=== PATIENT | female | born 1990 | race Hispanic/Latino ===

== ENCOUNTER 2021-03-12 01:43 | Emergency (ER) | payer SELFPAY ==
[2021-03-12 01:46] VITALS: BP 120/77; PULSE 68; RESP 18; TEMP 36.6; O2SAT 100; BMI 28.3
--- NOTE | 2021-03-12 01:54 | EKG12_ITS ---
Test Reason : DYSRHTYHMIA Blood Pressure : / mmHG Vent. Rate : 069 BPM Atrial Rate : 069 BPM P-R Int : 158 ms QRS Dur : 084 ms QT Int : 372 ms P-R-T Axes : 053 058 039 degrees QTc Int : 398 ms Normal sinus rhythm Normal ECG Confirmed by PETE QUIJANO, SKYLA ([id number]), video effects editor NICOLE ZENG ([id number]) on 03/13/2021 10:14:20 A M Referred By: PL Confirmed By:J CARLOS FREEMAN MD
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
[2021-03-12 02:09] LABS: Absolute Neutrophil Count 4.5 X10^3/uL (2.0-7.7); Basophil# 0.01 X10^3/uL; Basophil% 0.2 % (0-1); Eosinophil# 0.09 X10^3/uL; Eosinophils% 1.4 % (0-5); Hematocrit 41.1 % (37-47); Lymphocyte % 22.7 % (19-41); Mean Corp Hgb Conc 31.6 g/dL (32-36); Mean Corpuscular Hgb 30.5 pg (27.0-32.0); Mean Corpuscular Volume 96.5 fL (81-99); Mean Platelet Vol. 9.9 fl (6.2-12.0); Monocyte# 0.45 X10^3/uL; Monocyte% 6.8 % (0-10); NRBC Flagged by Analyzer 0 % (0-5); Neutrophil # 4.51 X10^3/uL (2.7-7.7); Neutrophil % 68.1 % (47-70); Platelet Count 273 K/mm3 (150-450); RBC Distribution Width CV 12.7 % (11.6-14.6); RBC Distribution Width SD 45.1 fl (35.1-43.9); Red Blood Count 4.26 M/mm3 (4.2-5.4); White Blood Count 6.6 K/mm3 (4.4-11.0)
[2021-03-12 02:27] LABS: ALB/GLOB Ratio 0.9 RATIO (0.9-2.4); AST(SGOT) 44 U/L (15-37); Alanine Aminotransfer ALT/SGPT 61 U/L (13-56); Albumin, Serum 3.5 g/dL (3.2-5.0); Alkaline Phosphatase 93 U/L (45-117); Anion Gap 7 (5-15); BUN 17 mg/dL (7-18); BUN/Creat Ratio 27.8 RATIO (10-20); Calcium,Total 8.8 mg/dL (8.5-10.1); Chloride 107 mmol/L (98-107); Creatinine, Serum 0.61 mg/dL (0.55-1.02); EST Glomerular Filtration Rate 121 mL/min (>60); Est Glom Filt Rate - Afr Amer 146 mL/min (>60); Estimated Creatinine Clearance 105.69 ml/min; Globulin 3.7 g/dL (2.2-4.2); Glucose 100 mg/dL (74-106); Internal QC Validated? YES +Cl - CLEAR BKGD; Potassium 3.4 mmol/L (3.5-5.1); Pregnancy, Serum, hCG Quali. NEGATIVE Negative; Protein, Total 7.2 g/dL (6.4-8.2); Sodium Level 140 mmol/L (136-145)
[2021-03-12 03:12] VITALS: BP 114/71; PULSE 70; RESP 17; O2SAT 97
[2021-03-12 03:37] VITALS: BP 117/76; PULSE 64; RESP 18; O2SAT 100
== END 2021-03-12 03:40 | disposition home or self-care (01) ==
PROVIDERS: Emergency Provider Emergency Medicine
DX: S00.01XA Abrasion of scalp, initial encounter (principal); S16.1XXA Strain of muscle, fascia and tendon at neck level, initial encounter; S40.812A Abrasion of left upper arm, initial encounter; V49.9XXA Car occupant (driver) (passenger) injured in unspecified traffic accident, initial encounter; Y92.410 Unspecified street and highway as the place of occurrence of the external cause; Y93.01 Activity, walking, marching and hiking
CPT/HCPCS: 70450; 71045; 72125; 74177; 80053; 84703; 85025; 93005; 99285; Q9967; A4216

== ENCOUNTER 2023-01-09 22:22 | Emergency (ER) | payer SELFPAY ==
[2023-01-09 22:23] VITALS: BP 110/66; PULSE 68; RESP 15; TEMP 36.4; O2SAT 94; BMI 28.3
--- NOTE | 2023-01-09 23:28 | EDS_ITS ---
HPI History of Present Illness Chief Complaint: Rash Informant: patient and spouse/S.O. Narrative Narrative: Patient is a 32-year-old female with no reported significant past medical history. She states that after being outside in the sun over the last few days she has noticed a red pruritic rash to her arms upper chest and face. She states that the rash is only on the exposed areas. She denies any new exposures and states no one else at home has the rash. She denies any trouble breathing or swallowing but states it is difficult to sleep secondary to the persistent itching and therefore comes in for evaluation PFSH PFSH no medical history Home Medications desonide 0.05 % topical cream 1 applic topical TID PRN skin irritation/itching #60 grams 01/09/23 [Rx Last Taken Unknown] prednisone 20 mg tablet 40 mg PO DAILY 7 days #14 tabs 01/09/23 [Rx Last Taken Unknown] Allergy/AdvReac Type Severity Reaction Status Date / Time No Known Allergies Allergy Verified 03/12/21 01:45 Social History Smoking Status: Never smoker ROS ROS ED Constitutional Constitutional ED: Denies chills or fever(s) ENT ENT ED: Denies sore throat Cardiovascular Cardiovascular: Denies chest pain Respiratory/Chest Respiratory/Chest: Denies cough or dyspnea Gastrointestinal Gastrointestinal: Denies abdominal pain, diarrhea, nausea or vomiting Genitourinary Genitourinary ED: Denies dysuria Musculoskeletal Musculoskeletal: Denies myalgias Integumentary Reports rash Neurologic Neurologic: Denies headache(s) Endocrine Endocrinology: Reports heat intolerance Hematologic/Lymphatic Hematologic/Lymphatic: Denies easy bleeding or easy bruising EXAM Physical Exam Const Vital Signs: 01/09/23 22:23 Temperature 97.5 F L Temperature Source Temporal Pulse Rate 68 Respiratory Rate 15 Blood Pressure 110/66 Blood Pressure Mean 80 Pulse Ox 94 Oxygen Delivery Method Room Air Positive well nourished and well developed General Appearance ED: well developed HEENT Reports moist mucous membranes HEENT Narrative: No tongue or lip swelling no oral lesions no airway edema or compromise Eyes PERRL and EOMs intact bilaterally Neck supple Resp normal respiratory effort and clear to auscultation bilaterally Cardio regular rate and regular rhythm GI normal to inspection, nondistended, normoactive bowel sounds, non-tender, non- distended and no masses Auscultation: normoactive bowel sounds Palpation: soft Extremity normal to inspection Neuro oriented x3 and CN's II-XII intact bilaterally Sensorium / Orientation: alert Psych mental status grossly normal Skin Skin Narrative: Along the forearm and upper arms bilaterally patient has erythematous blanchable urticarial-like rash this rash is also present along the upper chest and along the cheeks and chin regions of the face. There is no involvement of the palms or soles. No vesicular or pustule. General Skin Exam: Negative for jaundice MDM MDM MDM Narrative Medical decision making narrative: Patient presented to the ER with stable vitals she had no signs of respiratory distress no tongue or lip swelling no oral lesions. By exam the area of the rash is only present over top of the arms chest and face which were exposed to the sun. There is no rash along the abdomen/lower chest or back or along the thighs or calfs which are covered by pants. This goes against a potential systemic allergic reaction from ingestion, inhalation or some type of detergent. As patient states these lesions only appeared after being out in the sun this is most likely heat urticaria. As she does not have signs of respiratory distress or infectious process there is no need for work-up and she can be given symptomatic medications because of the rash/pruritus and discharged home History & Record Review Discussion w/independent historian: Patient and Significant other Discharge Plan Triage Chief Complaint: Rash ED Provider: Juan Carlos Wells Dx/Rx/DC Orders Clinical Impression: Urticaria due to heat Instructions: ED General Allergic Reactions, ED Hives (Adult) Prescriptions: New prednisone 20 mg tablet 40 mg PO DAILY 7 Days Qty: 14 0RF desonide 0.05 % cream 1 applic topical TID PRN (Reason: skin irritation/itching) Qty: 60 1RF Primary Care Provider: Care Physician,No Primary Referrals: Care Physician,No Primary [Primary Care Provider] - Activity Restrictions/Additional Instructions: Please use the prescribed steroid pills for the next 7 days to control any allergic reaction/rash. Once the pills are finished you can control any returning skin irritation/rash with the prescribed cream. Please follow with your family doctor for repeat evaluation and return to the ER should you have any further concerns Print Language: Greenlandic Disposition Disposition: Home, Self Care Discharge Date/Time: 01/09/23 23:49
[2023-01-09] MEDS: Triamcinolone Acetonide 40 MG/ML Vial IM (23:39)
== END 2023-01-09 23:49 | disposition home or self-care (01) ==
PROVIDERS: Emergency Provider Emergency Medicine; Visit Provider Emergency Medicine
DX: L50.9 Urticaria, unspecified (principal)
CPT/HCPCS: 96372; 99282

== ENCOUNTER 2024-01-09 20:36 | Emergency (ER) | payer SELFPAY ==
[2024-01-09 20:37] VITALS: BP 123/73; PULSE 84; RESP 16; TEMP 36.2; O2SAT 100; BMI 31.6
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
[2024-01-09] MEDS: Triamcinolone Acetonide 40 MG/ML Vial IM (21:22)
[2024-01-09 21:26] VITALS: BP 122/79; PULSE 87; RESP 16; TEMP 36.7; O2SAT 97
== END 2024-01-09 21:27 | disposition home or self-care (01) ==
PROVIDERS: Emergency Provider Emergency Medicine; Visit Provider Emergency Medicine
DX: L50.2 Urticaria due to cold and heat (principal)
CPT/HCPCS: 99282